=== PATIENT | female | born 1975 | race Caucasian/White ===

== ENCOUNTER 2019-03-31 09:55 | Inpatient (IN) | payer OTHER ==
[2019-03-28 09:34] VITALS: BMI 37.8
[2019-03-31] MEDS ORDERED: PROPOFOL 20 ML ONE (10:31)
[2019-03-31] MEDS ORDERED: ROCURONIUM BROMIDE 50 MG/5 ML VIAL ONE (10:31)
[2019-03-31] MEDS ORDERED: fentaNYL CITRATE 250 MCG/5 ML VIAL ONE (10:31)
[2019-03-31] MEDS ORDERED: DEXAMETHASONE SOD PHOSPHATE 4 MG/1 ML VIAL ONE (10:35)
[2019-03-31] MEDS ORDERED: ONDANSETRON 4 MG/2 ML VIAL ONE (10:35)
[2019-03-31] MEDS ORDERED: ceFAZolin SODIUM 1 GM VIAL ONE (10:35)
[2019-03-31] MEDS ORDERED: KETOROLAC TROMETHAMINE 30 MG/1 ML VIAL ONE (10:35)
[2019-03-31] MEDS ORDERED: LIDOCAINE HCL/PF 2% SDV 5ML VIAL ONE (10:35)
[2019-03-31] MEDS ORDERED: BUPIVACAINE HCL 0.25% 125 MG/50 ML VIAL ONE (10:49)
[2019-03-31] MEDS ORDERED: DEXAMETHASONE SOD PHOSPHATE/PF 10 MG/ML SDV ONE (10:59)
[2019-03-31] MEDS ORDERED: BUPIVACAINE HCL/PF (5 MG/ML) 30 ML VIAL IJ ONE (11:00)
[2019-03-31] MEDS ORDERED: MIDAZOLAM HCL 2 MG/2 ML SINGLE DOSE VIAL ONE (11:00)
--- NOTE | 2019-03-31 11:16 | HP ---
Admitting History and Physical - Admission Chief Complaint: morbid obesity History Source: Patient Limitations to Obtaining History: No Limitations - Past Medical History Cardiovascular: Yes: Hyperlipdemia Pulmonary: Yes: Sleep Apnea ...LMP Comment: unknown ...: No - Advance Directives Advance Directives: Yes: Health Care Proxy - Smoking History Smoking history: Never smoked Have you smoked in the past 12 months: No - Alcohol/Substance Use Hx Alcohol Use: No Home Medications - Allergies Allergies/Adverse Reactions: Allergies Allergy/AdvReac Type Severity Reaction Status Date / Time No Known Allergies Allergy Verified 03/28/19 09:34 - Home Medications Home Medications: Ambulatory Orders Famotidine [Pepcid] 20 mg PO BID #60 tablet 03/31/19 Fenofibrate 0 mg PO DAILY 03/31/19 Oxycodone HCl/Acetaminophen [Percocet 5-325 mg Tablet] 1 - 2 tab PO Q4H #28 tablet MDD 4 03/31/19 Family Disease History - Family Disease History Family History: Unremarkable Review of Systems - Review of Systems Constitutional: denies: Chills, Fever HENT: reports: No Symptoms Neck: reports: No Symptoms Cardiovascular: reports: No Symptoms Respiratory: reports: No Symptoms Gastrointestinal: reports: No Symptoms Neurological: reports: No Symptoms Pain Intensity: 0 Physical Examination Vital Signs: Vital Signs Temperature 99.2 F 03/31/19 10:56 Pulse Rate 87 03/31/19 10:56 Respiratory Rate 18 03/31/19 10:56 Blood Pressure 128/83 03/31/19 10:56 O2 Sat by Pulse Oximetry (%) 96 03/31/19 10:59 Constitutional: Yes: Calm HENT: Yes: WNL Neck: Yes: WNL Cardiovascular: Yes: Regular Rate and Rhythm Respiratory: Yes: Regular Gastrointestinal: Yes: Soft, Abdomen, Obese Neurological: Yes: Alert, Oriented Problem List - Problems (1) Morbid obesity due to excess calories Code(s): E66.01 - MORBID (SEVERE) OBESITY DUE TO EXCESS CALORIES (2) Hyperlipidemia Code(s): E78.5 - HYPERLIPIDEMIA, UNSPECIFIED Qualifiers: Hyperlipidemia type: unspecified Qualified Code(s): E78.5 - Hyperlipidemia , unspecified (3) Sleep apnea Code(s): G47.30 - SLEEP APNEA, UNSPECIFIED Qualifiers: Sleep apnea type: unspecified type Qualified Code(s): G47.30 - Sleep apnea , unspecified Assessment/Plan Laparoscopic vertical sleeve gastrectomy possible open possible liver biopsy possible endoscopy
[2019-03-31] MEDS ORDERED: BUPIVACAINE HCL/PF 0.25% (2.5MG/ML) 10 ML VIAL IJ ONE (13:09)
[2019-03-31] MEDS ORDERED: SODIUM CHLORIDE 1,000 ML IV SCH (13:15)
--- NOTE | 2019-03-31 13:15 | OP ---
Operative Note - Note: Operative Date: 03/31/19 Pre-Operative Diagnosis: morbid obesity. Hyperlipidemia. Sleep apnea Operation: Laparoscopic vertical sleeve gastrectomy. Laparoscopic wedge liver biopsy Surgeon: Pvael Lewis Clinical Psychology Teacher: Wiley Mendoza Anesthesia: General Specimens Removed: Greater curvature of stomach. Liver biopsy Estimated Blood Loss (mls): 30 Drains & Tubes with Location: 36 Fr bougie Operative Report Dictated: Yes
[2019-03-31] MEDS: ONDANSETRON 4 MG/2 ML VIAL IVPUSH SCH ×4 (13:45→21:05)
[2019-03-31] MEDS: METOCLOPRAMIDE HCL INJECTION 10 MG/2 ML VIAL IVPUSH SCH ×3 (13:48→21:05)
[2019-03-31] MEDS: ACETAMINOPHEN 1000 MG/100 ML VIAL (NON FORMULARY) IVPB SCH ×3 (13:51→21:06)
[2019-03-31 14:01] LABS: HEMATOCRIT 33.9 % (32.4-45.2); HEMOGLOBIN 10.7 GM/dl (10.7-15.3); MCH 22.6 pg (25.7-33.7); MCHC 31.6 g/dl (32.0-36.0); MEAN CELL VOLUME 71.5 fl (80-96); MEAN PLT VOLUME 7.3 fl (7.5-11.1); PLATELET COUNT 304 K/MM3 (134-434); RBC 4.74 M/mm3 (3.60-5.2); RDW 13.8 % (11.6-15.6); WHITE BLOOD COUNT 11.1 K/mm3 (4.0-10.8)
[2019-03-31 14:24] LABS: ALBUMIN 3.4 g/dl (3.4-5.0); BILIRUBIN,TOTAL 0.4 mg/dl (0.2-1); CALCIUM 8.1 mg/dl (8.5-10); CREATININE 0.6 mg/dl (0.55-1.3); POTASSIUM 3.6 mmol/L (3.5-5.1); TOT PROT 6.2 g/dl (6.4-8.2)
[2019-03-31] MEDS ORDERED: LACTATED RINGERS SOLUTION 1,000 ML IV SCH (14:45)
[2019-03-31] MEDS ORDERED: FAMOTIDINE 20 MG/50 ML IVPB 20 MG/50 ML MG IVPB ONE (14:59)
[2019-03-31] MEDS ORDERED: FAMOTIDINE 20 MG PREMIXED IVPB IVPB ONE (15:01)
--- NOTE | 2019-03-31 18:43 | SPEC ---
DATE OF OPERATION: SURGEON: Pavel Lewis MD PULPWOOD BUYER: Wiley Mendoza MD PLACE OF SERVICE: [facility] PREOPERATIVE DIAGNOSES: 1. Morbid obesity. 2. Hyperlipidemia. 3. Obstructive sleep apnea. 4. Body mass index of 37.8. POSTOPERATIVE DIAGNOSES: 1. Morbid obesity. 2. Hyperlipidemia. 3. Obstructive sleep apnea. 4. Body mass index of 37.8. 5. Hepatomegaly. PROCEDURES: 1. Diagnostic laparoscopy. 2. Laparoscopic vertical sleeve gastrectomy. 3. Laparoscopic wedge liver biopsy. SPECIMEN: 1. Greater curvature of the stomach. 2. Liver biopsy. ESTIMATED BLOOD LOSS: 30 mL. DRAINS: None. ANESTHESIA: General endotracheal. BOUGIE SIZE: 36-Georgian. REASON FOR PROCEDURE: This is a 43-year-old female who presented for weight loss options. After describing different options, she decided to proceed with laparoscopic, possible open, vertical sleeve gastrectomy, possible liver biopsy, upper endoscopy. RISKS AND BENEFITS: After describing the different options for weight loss management, the patient decided to proceed with a laparoscopic, possible open vertical sleeve gastrectomy. The patient was seen by the respective subspecialties and cleared for surgery. The risks and benefits of the procedure were explained. These included bleeding, infection, hernia, IN, DVT, PE, injury to surrounding structures including the liver, colon, bowel, spleen, esophagus, vessel injury, nerve injury, weight regain, gastric leak, staple line leak, sleeve leak, obstruction, vitamin deficiency, hair loss and as some of the possible complications. The patient understood and signed informed consent. DESCRIPTION OF PROCEDURE: The patient was placed supine on the operating room table. The patient underwent general endotracheal intubation. The arms were brought out at 90 degrees and secured. A footboard was placed and the legs were secured laterally with padding. The abdomen was prepped and draped in the usual sterile fashion. A timeout was performed. An incision was made in the left upper quadrant and a Veress needle inserted. Pneumoperitoneum was established. Subsequently, the Veress needle was removed and a 5-mm trocar was placed under direct visualization with the laparoscope. The laparoscopic camera was then inserted and inspection of the abdominal cavity was performed. An incision was then made in the supraumbilical area and a 15-mm trocar was placed under direct visualization. A 5-mm trocar was then placed in the right upper quadrant and a 5-mm trocar was placed below the left subcostal margin. A stab wound was made in the subxiphoid area and a Liberty clamp inserted and removed to dilate the tract. A Erik liver retractor was inserted. The post was secured at the bedside by the nursing staff. The patient was placed in steep reverse Trendelenburg position and the Erik liver retractor was used to secure the liver towards the anterior abdominal wall. The pylorus was identified and 6 cm proximal to it, the lesser sac was entered using the LigaSure device. All lateral attachments to the greater curvature of the stomach, including the short gastric vessels, were ligated using the LigaSure device toward the gastrosplenic and gastrophrenic ligaments. Once this was done in its entirety, it was confirmed that all tubes within the nasal or oropharyngeal cavity, including a temperature probe were removed by Anesthesia. The bougie was then inserted by Anesthesia. Transection of the stomach was then begun staying adjacent to the bougie but away from the angularis. Transection of the stomach was performed near the portion of the stomach where the lesser sac was entered. Two laparoscopic Endo-LYLE black alma were used at this location. Laparoscopic Endo LYLE purple staple loads were then used for the remainder of the transection until the greater curvature of the stomach was fully transected. This was done staying close to the bougie. Care was taken to stay away from the angle of His cephalad. The staple line was then inspected. Hemostasis was identified. A leak test was then performed. It was clamped distally to the staple line. Irrigation solution was placed in the left upper quadrant and air was insufflated by Anesthesia into the sleeve. No leaks were identified. No obstruction was identified. This was done through the entirety of the staple line. The stomach was suctioned and the bougie removed fully intact under direct visualization. At this point, the irrigation solution was suctioned and again, hemostasis was noted. A wedge liver biopsy was then performed. The left lobe of the liver was identified. A portion of the edge of the left lobe of the liver was grasped. Using electrocautery, a wedge of the left liver was excised. The specimen was removed and sent off the field. Hemostasis of the wedge liver biopsy site was attained and noted using electrocautery. The 15-mm supraumbilical trocar was then removed and the greater curvature specimen removed from the site using a sponge stick richard. A Anson-Leona device was then used to close the fascia with a 0 Vicryl suture at the site. Again, hemostasis was noted. The Erik liver retractor was then removed under direct visualization. Pneumoperitoneum was desufflated. Hemostasis was noted at all incision sites and Marcaine was injected at all incision sites. A 3-0 Vicryl suture was used to close the deep subcutaneous tissue at the 15-mm incision site. All incision sites were closed using 4-0 Biosyn. Sterile dressings were applied. The patient tolerated the procedure well and was transferred to the recovery room in stable condition. Leonela AMBROCIO/[id number]
--- NOTE | 2019-03-31 19:16 | CONSULT ---
Consult Consult Specialty:: IM Reason for Consultation:: medical management - History of Present Illness Chief Complaint: 43 yo lady with morbid obesity came in for Laparoscopic vertical sleeve gastrectomy possible open possible liver biopsy possible endoscopy,. denies chest pain, palpitations, nausea, vomiting, diarrhea - History Source History Provided By: Patient - Past Medical History Cardio/Vascular: Yes: Hyperlipdemia ...LMP Comment: unknown ...: No - Alcohol/Substance Use Hx Alcohol Use: No - Smoking History Smoking history: Never smoked Have you smoked in the past 12 months: No Home Medications - Allergies Allergies/Adverse Reactions: Allergies Allergy/AdvReac Type Severity Reaction Status Date / Time No Known Allergies Allergy Verified 03/28/19 09:34 - Home Medications Home Medications: Ambulatory Orders Famotidine [Pepcid] 20 mg PO BID #60 tablet 03/31/19 Fenofibrate 0 mg PO DAILY 03/31/19 Oxycodone HCl/Acetaminophen [Percocet 5-325 mg Tablet] 1 - 2 tab PO Q4H #28 tablet MDD 4 03/31/19 Review of Systems - Review of Systems Constitutional: reports: No Symptoms Eyes: reports: No Symptoms HENT: reports: No Symptoms Neck: reports: No Symptoms Cardiovascular: reports: No Symptoms Respiratory: reports: No Symptoms Gastrointestinal: reports: No Symptoms Genitourinary: reports: No Symptoms Breasts: reports: No Symptoms Reported Musculoskeletal: reports: No Symptoms Integumentary: reports: No Symptoms Neurological: reports: No Symptoms Endocrine: reports: No Symptoms Hematology/Lymphatic: reports: No Symptoms Psychiatric: reports: No Symptoms Physical Exam Vital Signs: Vital Signs Temperature 98.1 F 03/31/19 15:49 Pulse Rate 96 H 03/31/19 17:13 Respiratory Rate 18 03/31/19 17:13 Blood Pressure 118/66 03/31/19 17:13 O2 Sat by Pulse Oximetry (%) 97 03/31/19 15:51 Constitutional: Yes: Well Nourished, No Distress Eyes: Yes: WNL HENT: Yes: WNL Neck: Yes: WNL Cardiovascular: Yes: WNL Respiratory: Yes: WNL Gastrointestinal: Yes: WNL Renal/: Yes: WNL Musculoskeletal: Yes: WNL Extremities: Yes: WNL Edema: No Integumentary: Yes: WNL Neurological: Yes: WNL ...Motor Strength: WNL Psychiatric: Yes: WNL Labs: CBC, BMP 03/31/19 13:45 03/31/19 13:45 Assessment/Plan 43 yo morbidly obese lady with PMH of HLD, sleep apnea, S/P laparoscopic vertical sleeve gastrectomy, Laparoscopic wedge liver biopsy POD #0. no complications. cont pain management. incentive spirometry. -GI, DVT prophylaxis. -on reglan, zofran for nausea -mild leucocytosis: will monitor for now. hyperglycemia: HbA1C ordered for AM -oral diet as tolerated -OOB as tolerated -will follow up
[2019-03-31] MEDS: ENOXAPARIN NA (PORCINE) 40 MG/0.4 ML DISP.SYRIN SQ SCH (21:06)
[2019-03-31] MEDS: FAMOTIDINE 20 MG/50 ML IVPB 20 MG/50 ML MG IVPB SCH (21:06)
[2019-04-01] MEDS: METOCLOPRAMIDE HCL INJECTION 10 MG/2 ML VIAL IVPUSH SCH ×3 (02:00→13:03)
[2019-04-01] MEDS: ONDANSETRON 4 MG/2 ML VIAL IVPUSH SCH ×3 (02:00→13:03)
[2019-04-01] MEDS: ACETAMINOPHEN 1000 MG/100 ML VIAL (NON FORMULARY) IVPB SCH ×2 (02:00→08:33)
[2019-04-01] MEDS: HYDROmorphone HCL CARPU-JECT 1 MG/1 ML DISP.SYRIN IVPB PRN ×2 (06:37→13:40)
[2019-04-01 07:55] LABS: HEMATOCRIT 31.3 % (32.4-45.2); HEMOGLOBIN 9.4 GM/dl (10.7-15.3); MCH 21.8 pg (25.7-33.7); MEAN CELL VOLUME 72.9 fl (80-96); MEAN PLT VOLUME 7.9 fl (7.5-11.1); PLATELET COUNT 322 K/MM3 (134-434); WHITE BLOOD COUNT 12.6 K/mm3 (4.0-10.8)
--- NOTE | 2019-04-01 09:10 | PN ---
Progress Note (short form) - Note Progress Note: 43F POD1 s/p lap sleeve gastrectomy under GA-ETT doing well. Pt states that pain is well controlled, reports no anesthetic complications. AVSS. Continue current regimen.
[2019-04-01] MEDS: FAMOTIDINE 20 MG/50 ML IVPB 20 MG/50 ML MG IVPB SCH (09:12)
[2019-04-01] MEDS: ENOXAPARIN NA (PORCINE) 40 MG/0.4 ML DISP.SYRIN SQ SCH (09:12)
[2019-04-01 09:21] LABS: ALBUMIN 3.2 g/dl (3.4-5.0); BILIRUBIN,TOTAL 0.5 mg/dL (0.2-1); BLOOD UREA NITROGEN 8.2 mg/dL (7-18); CREATININE 0.6 mg/dL (0.55-1.3); POTASSIUM 3.7 mmol/L (3.5-5.1); TOT PROT 6.2 g/dl (6.4-8.2)
--- NOTE | 2019-04-01 13:47 | PN ---
Progress Note (short form) - Note Progress Note: POD 1 Pain/nausea controlled Vital Signs Period Temp Pulse Resp BP Sys/Webster Pulse Ox Last 24 Hr 98.1 F-98.7 F 78-111 17-20 112-142/53-80 94-98 Abd soft CBC,CMP WBC 12.6 K/mm3 (4.0-10.8) H 04/01/19 07:21 RBC 4.30 M/mm3 (3.60-5.2) 04/01/19 07:21 Hgb 9.4 GM/dl (10.7-15.3) L 04/01/19 07:21 Hct 31.3 % (32.4-45.2) L 04/01/19 07:21 MCV 72.9 fl (80-96) L 04/01/19 07:21 MCH 21.8 pg (25.7-33.7) L 04/01/19 07:21 MCHC 30.0 g/dl (32.0-36.0) L 04/01/19 07:21 RDW 14.0 % (11.6-15.6) 04/01/19 07:21 Plt Count 322 K/MM3 (134-434) 04/01/19 07:21 MPV 7.9 fl (7.5-11.1) 04/01/19 07:21 Sodium 141 mmol/L (136-145) 04/01/19 07:21 Potassium 3.7 mmol/L (3.5-5.1) 04/01/19 07:21 Chloride 110 mmol/L (98-107) H 04/01/19 07:21 Carbon Dioxide 23 mmol/L (21-32) 04/01/19 07:21 Anion Gap 8 MMOL/L (8-16) 04/01/19 07:21 BUN 8.2 mg/dL (7-18) 04/01/19 07:21 Creatinine 0.6 mg/dL (0.55-1.3) 04/01/19 07:21 Est GFR (CKD-EPI)AfAm 128.48 04/01/19 07:21 Est GFR (CKD-EPI)NonAf 110.86 04/01/19 07:21 Random Glucose 122 mg/dL (74-106) H 04/01/19 07:21 Calcium 8.0 mg/dL (8.5-10.1) L 04/01/19 07:21 Total Bilirubin 0.5 mg/dL (0.2-1) 04/01/19 07:21 AST 51 U/L (15-37) H 04/01/19 07:21 ALT 99 U/L (13-61) H 04/01/19 07:21 Alkaline Phosphatase 73 U/L (45-117) 04/01/19 07:21 Total Protein 6.2 g/dl (6.4-8.2) L 04/01/19 07:21 Albumin 3.2 g/dl (3.4-5.0) L 04/01/19 07:21 UGI: no leak/obstruction Clears Discharge home Problem List - Problems (1) Morbid obesity due to excess calories Code(s): E66.01 - MORBID (SEVERE) OBESITY DUE TO EXCESS CALORIES (2) Hyperlipidemia Code(s): E78.5 - HYPERLIPIDEMIA, UNSPECIFIED Qualifiers: Hyperlipidemia type: unspecified Qualified Code(s): E78.5 - Hyperlipidemia , unspecified (3) Sleep apnea Code(s): G47.30 - SLEEP APNEA, UNSPECIFIED Qualifiers: Sleep apnea type: unspecified type Qualified Code(s): G47.30 - Sleep apnea , unspecified
[2019-04-01 14:13] VITALS: BP 133/77; PULSE 93; TEMP 98.6
--- NOTE | 2019-04-02 14:18 | PATH ---
Surgical Pathology Report Patient Name: RADHA RHOADES Med. Rec. #: [id number] /Age/Gender: 1975 (Age: 43) / F Account: [id number] Location: [facility] MED-SURG Taken: 03/31/2019 Received: 03/31/2019 Reported: 04/02/2019 Physicians: Pavel Lewis M.D. Specimen(s) Received A: GREATER CURVATURE STOMACH B: LIVER BIOPSY Clinical History Morbid obesity Final Diagnosis A. STOMACH, GREATER CURVATURE, SLEEVE GASTRECTOMY: PORTION OF GASTRIC FUNDUS WITH MILD CHRONIC GASTRITIS. IMMUNOSTAIN FOR H. PYLORI IS NEGATIVE. B. LIVER, WEDGE BIOPSY: STEATOHEPATITIS, GRADE 2 OF 3, WITH MILD LOBULAR INFLAMMATION AND MILD TO MODERATE PORTAL INFLAMMATION. TRICHROME STAIN HIGHLIGHTS PERISINUSIDAL, PORTAL, AND PERIPORTAL FIBROSIS (STAGE 2 OF 4). IRON STAIN IS NEGATIVE FOR SIDEROSIS. Comment: Recommend correlation with clinical findings and follow up as clinically indicated. Electronically Signed Mateo Gomes M.D. Gross Description A. Received in formalin, labeled "greater curvature of stomach," is a 132 gram, 19.0 x 3.2 x 3.2 cm. portion of stomach with a stapled margin of resection. The serosa is baker-crain with minimal attached fat. The mucosa is baker-pink with normal folds. No mucosal masses are identified. Concession Supervisor sections are submitted in one cassette. B. Received in formalin labeled "liver biopsy," is a 3.2 x 1.5 x 1.0 cm baker portion of soft tissue, consistent with a liver biopsy. Concession Supervisor sections are submitted in one cassette. /04/01/2019 saudi/04/01/2019
== END 2019-04-01 15:00 | disposition home or self-care (01) | DRG 403 ==
LOC: FM/S 09:55
PROVIDERS: ADMIT Surgery; ATTEND Surgery
PROC: 0WJP4ZZ Inspection of Gastrointestinal Tract, Percutaneous Endoscopic Approach (ICD-10-PCS; 2019-03-31)
PROC: 0DB64Z3 Excision of Stomach, Percutaneous Endoscopic Approach, Vertical (ICD-10-PCS; principal; 2019-03-31 12:11)
PROC: 0FB24ZX Excision of Left Lobe Liver, Percutaneous Endoscopic Approach, Diagnostic (ICD-10-PCS; 2019-03-31 12:11)
DX: E66.01 Morbid (severe) obesity due to excess calories (principal); Z68.37 Body mass index [BMI] 37.0-37.9, adult; E78.5 Hyperlipidemia, unspecified; G47.33 Obstructive sleep apnea (adult) (pediatric); R16.0 Hepatomegaly, not elsewhere classified
CPT/HCPCS: 36415; 74241-TC-FY; 80053; 83036; 84703; 85027; 88305-TC; 88307-TC; 88313-TC; 88342-TC; 94760; J0131

== ENCOUNTER 2019-10-19 00:50 | Inpatient (IN) | payer OTHER ==
[2019-10-19] MEDS ORDERED: METHOCARBAMOL 500 MG TABLET PO ONE (01:24)
[2019-10-19] MEDS ORDERED: ACETAMINOPHEN 1000 MG/100 ML VIAL (NON FORMULARY) IVPB ONE (01:24)
--- NOTE | 2019-10-19 01:24 | PDOC ---
History of Present Illness - General Chief Complaint: Chest Pain Stated Complaint: CHEST PAIN Time Seen by Provider: 10/19/19 01:16 - History of Present Illness Initial Comments: 10/19/19 01:31 The patient is a 44 year old female with a history of anemia who presents for evaluation of chest pain. The patient reports a 2 day history of right sided sharp chest pain worse with right arm movement and radiating to her back. She initially presented to her primary care provider 1 day ago and was given a toradol shot for pain. However, she reports worsening pain today prompting her presentation to the ED for further evaluation. She otherwise denies recent long travel, fevers, chills, SOB, nausea, vomiting, abdominal pain, or changes with urination or bowel movements. Past History - Past Medical History Allergies/Adverse Reactions: Allergies Allergy/AdvReac Type Severity Reaction Status Date / Time No Known Allergies Allergy Verified 03/28/19 09:34 Home Medications: Ambulatory Orders Famotidine [Pepcid] 20 mg PO BID #60 tablet 03/31/19 Fenofibrate 0 mg PO DAILY 03/31/19 Oxycodone HCl/Acetaminophen [Percocet 5-325 mg Tablet] 1 - 2 tab PO Q4H #28 tablet MDD 4 03/31/19 Anemia: No Asthma: No Cancer: No Cardiac Disorders: No CVA: No COPD: No CHF: No Dementia: No Diabetes: No GI Disorders: No Disorders: No HTN: No Hypercholesterolemia: No Liver Disease: No Seizures: No Thyroid Disease: No - Surgical History Abdominal Surgery: Yes (TUMMY TUCK) Appendectomy: Yes Cardiac Surgery: No Cholecystectomy: No Lung Surgery: No Neurologic Surgery: No Orthopedic Surgery: No - Psycho Social/Smoking Cessation Hx Smoking History: Never smoked Have you smoked in the past 12 months: No Hx Alcohol Use: No Drug/Substance Use Hx: No Substance Use Type: None Hx Substance Use Treatment: No Review of Systems - Review of Systems Comments:: 10/19/19 01:38 Constitutional: No fevers, chills, fatigue, malaise HEENT: No Rhinorrhea, nasal congestion, visual changes Cardiovascular: Chest pain. No syncope, palpitations, lightheadedness Respiratory: No Cough, SOB, Hemoptysis, Gastrointestinal: No Abdominal pain, Nausea, Vomiting, Constipation, Diarrhea, Melena Genitourinary: No Dysuria, Frequency, Urgency, Hesitancy, Hematuria, Flank pain Musculoskeletal: No Myalgia, arthralgia Skin: No rashes, itching, bruising, pallor Neurologic: No Headache, Dizziness, Numbness, Weakness, or Tingling Psychiatric: No Hallucinations. No SI or HI *Physical Exam - Physical Exam 10/19/19 01:39 General Appearance: Nourished. No Apparent Distress HEENT: No Pharyngeal Erythema, Tonsillar Exudate, Tonsillar Erythema Neck: No Cervical Lymphadenopathy Respiratory/Chest: Lungs Clear, Normal Breath Sounds. Reproducible tenderness to palpation along the right sternal boarder. No Crackles, Rales, Rhonchi, Wheezing Cardiovascular: Regular Rhythm, Regular Rate. No Murmur, Gallops, Rubs Gastrointestinal/Abdominal: Normal Bowel Sounds, Soft. No Guarding, Rebound, Tenderness Musculoskeletal: No CVA Tenderness Extremity: Normal Capillary Refill Integumentary: Normal Color, Dry, Warm Neurologic: Fully Oriented, Alert, Normal Mood/Affect, Normal Response, Heart Score/ECG Review #1 ECG reviewed & interpreted by me at: 01:39 10/19/19 01:39 HR 65 CA 146 QRS 82 QTc 436 Normal sinus Rhythm No acute ST Changes ED Treatment Course - LABORATORY CBC & Chemistry Diagram: 10/19/19 01:45 10/19/19 01:45 Medical Decision Making - Medical Decision Making 10/19/19 01:40 The patient is a 44 year old female with a history of anemia who presents for evaluation of chest pain. Given the patient's history and physical exam, it is likely the patient's symptoms are musculoskeletal in nature. However, we will obtain a cbc, cmp, troponin, ekg, chest plain film to evaluate further. We will treat with tylenol and robaxin and continue to monitor and reassess while here in the ED. 10/19/19 05:28 CBC demonstrates a hgb of 7.9. CMP and troponin are unremarkable. Chest plain film did not demonstrate an acute process. The patient continues to complain of persistent chest pain. Given the patient's persistent pain and anemia with acute drop in her hgb, she will require admission for further monitoring and management. Discharge - Discharge Information Problems reviewed: Yes Clinical Impression/Diagnosis: Chest pain, Anemia Condition: Stable - Admission Yes - Follow up/Referral - Patient Discharge Instructions - Post Discharge Activity
--- NOTE | 2019-10-19 01:27 | PDOC ---
Attending Attestation - Resident Resident Name: Harish Rodriguez - ED Attending Attestation I have performed the following: I have examined & evaluated the patient, The case was reviewed & discussed with the resident, I agree w/resident's findings & plan - HPI HPI: 10/19/19 03:55 Pt comes with chest pain; symptomatic anemia. She is being worked up by her PMD for anemia; She has known anemia that has been dropping 11>10>9 and now 7 - Physicial Exam PE: 10/19/19 05:32 Afebrile VSS Pt has normal HEENT 10/19/19 06:25 Agree princess resident exam - Medical Decision Making 10/19/19 01:47 CXR is normal 10/19/19 06:25 labs are normal, except for anemia. Pt will be admitted for repeat CBC and monitoring of her CP and SPB and anemia hositalists are aware
[2019-10-19] MEDS ORDERED: ACETAMINOPHEN INJECTION 100 ML IVPB ONE (02:00)
[2019-10-19 02:02] LABS: BASO % 0.1 % (0-2.0); EOS % 6.1 % (0-4.5); HEMATOCRIT 26.5 % (32.4-45.2); HEMOGLOBIN 7.9 GM/dL (10.7-15.3); LYMPH % 29.5 % (8-40); MCHC 29.8 g/dl (32.0-36.0); MEAN CELL VOLUME 63.7 fl (80-96); MEAN PLT VOLUME 7.3 fl (7.5-11.1); MONO % 6.7 % (3.8-10.2); NEUT % 57.6 % (42.8-82.8); PLATELET COUNT 335 K/MM3 (134-434); RBC 4.16 M/mm3 (3.60-5.2); RDW 16.3 % (11.6-15.6)
[2019-10-19] MEDS ORDERED: METHOCARBAMOL 500 MG TABLET ONE (02:03)
[2019-10-19 02:32] LABS: ALK PHOS 56 U/L (45-117); ANION GAP 6 MMOL/L (8-16); BILIRUBIN,TOTAL 0.2 mg/dL (0.2-1); BLOOD UREA NITROGEN 13.6 mg/dL (7-18); CALCIUM 8.1 mg/dL (8.5-10.1); CHLORIDE 109 mmol/L (98-107); CO2 25 mmol/L (21-32); CREATININE 0.5 mg/dL (0.55-1.3); GLUCOSE,RANDOM 90 mg/dL (74-106); POTASSIUM 4.1 mmol/L (3.5-5.1); SGOT/AST 11 U/L (15-37); SGPT/ALT 14 U/L (13-61); SODIUM 140 mmol/L (136-145); TOT PROT 5.9 g/dl (6.4-8.2)
[2019-10-19 03:38] LABS: INR 1.18 (0.83-1.09); PROTHROMBIN TIME (PATIENT) 13.9 SEC (9.7-13.0)
--- NOTE | 2019-10-19 04:43 | HP ---
Admitting History and Physical - Primary Care Physician PCP: Dr. Mcgraw - Admission Chief Complaint: right side chest pain History of Present Illness: 44 year old female with a history of anemia (03/31/19 Laparoscopic vertical sleeve gastrectomy) arrived to Emergency department for complain of right side chest pain. Patient reports pain started 2 days ago right sided sharp chest pain worse with right arm movement and radiating to her back. Patient went to PCP for symptoms for which she was given toradol shot without relief. Arrived to ER for worsening pain without SOB. Patient denies recent travel, fevers, chills, nausea, vomiting, abdominal pain, or changes with urination or bowel movements. History Source: Patient Limitations to Obtaining History: No Limitations - Past Medical History Cardiovascular: Yes: Hyperlipdemia Pulmonary: Yes: Sleep Apnea Gastrointestinal: Yes: GERD - Smoking History Smoking history: Never smoked Have you smoked in the past 12 months: No - Alcohol/Substance Use Hx Alcohol Use: No History of Substance Use: reports: None - Social History Usual Living Arrangement: Yes: Alone ADL: Independent History of Recent Travel: No Home Medications - Allergies Allergies/Adverse Reactions: Allergies Allergy/AdvReac Type Severity Reaction Status Date / Time No Known Allergies Allergy Verified 03/28/19 09:34 - Home Medications Home Medications: Ambulatory Orders Famotidine [Pepcid] 20 mg PO BID #60 tablet 03/31/19 Fenofibrate 0 mg PO DAILY 03/31/19 Oxycodone HCl/Acetaminophen [Percocet 5-325 mg Tablet] 1 - 2 tab PO Q4H #28 tablet MDD 4 03/31/19 Family Medical History Family History: Denies Review of Systems - Review of Systems Constitutional: reports: No Symptoms Eyes: reports: No Symptoms HENT: reports: No Symptoms Neck: reports: No Symptoms Cardiovascular: reports: Chest Pain (right side chest pain) Respiratory: reports: No Symptoms Gastrointestinal: reports: No Symptoms Genitourinary: reports: No Symptoms Musculoskeletal: reports: No Symptoms Integumentary: reports: No Symptoms Neurological: reports: No Symptoms Endocrine: reports: No Symptoms Hematology/Lymphatic: reports: No Symptoms Psychiatric: reports: No Symptoms Physical Examination Vital Signs: Vital Signs Temperature 98 F 10/19/19 01:55 Pulse Rate 64 10/19/19 01:55 Respiratory Rate 17 10/19/19 01:55 Blood Pressure 96/64 10/19/19 01:55 O2 Sat by Pulse Oximetry (%) 98 10/19/19 01:55 Constitutional: Yes: No Distress, Calm Eyes: Yes: Conjunctiva Clear, EOM Intact HENT: Yes: Atraumatic, Normocephalic Neck: Yes: Supple, Trachea Midline Cardiovascular: Yes: Regular Rate and Rhythm Respiratory: Yes: Regular, CTA Bilaterally Gastrointestinal: Yes: Normal Bowel Sounds, Soft Renal/: Yes: WNL Musculoskeletal: Yes: Muscle Pain (right side chest pain radiating to right upper back) Extremities: Yes: WNL Edema: No Peripheral Pulses WNL: Yes Integumentary: Yes: WNL Neurological: Yes: Alert, Oriented Psychiatric: Yes: Alert, Oriented Labs: CBC, BMP 10/19/19 01:45 10/19/19 01:45 Imaging - Results Chest X-ray: Report Reviewed (no acute infiltrate) Problem List - Problems (1) Chest pain Code(s): R07.9 - CHEST PAIN, UNSPECIFIED (2) Symptomatic anemia Code(s): D64.9 - ANEMIA, UNSPECIFIED (3) GERD (gastroesophageal reflux disease) Code(s): K21.9 - GASTRO-ESOPHAGEAL REFLUX DISEASE WITHOUT ESOPHAGITIS (4) Hyperlipidemia Code(s): E78.5 - HYPERLIPIDEMIA, UNSPECIFIED Qualifiers: Hyperlipidemia type: unspecified Qualified Code(s): E78.5 - Hyperlipidemia , unspecified Assessment/Plan 44 year old female with a history of anemia, GERD (s/p 03/31/19 Laparoscopic vertical sleeve gastrectomy) arrived to Emergency department for complain of worsening right side chest pain without SOB. # Chest pain ? musculoskeletal in nature EKG: NSR, rate 65, no s/t changes Trop: negative Given Tylenol and robaxin for pain without relief - will give morphine 0.5mg IV PUSH x1 (pain scale 9/10) - start flexeril 5mg daily - pain management tylenol 650mg PRN pain scale (1-5), oxycodone 5mg PRN (5-10) - follow up PT evaluation - can consider cardio follow up if EKG changes or symptoms get worse #Symptomatic Anemia ? microcytic anemia h/o (s/p 03/31/19 Laparoscopic vertical sleeve gastrectomy) (per patient baseline is 9 denies any dark stool, bleeding, denies taking iron supplement) - h/h has been trending downward 11.6, 10.7, 9.4, 7.9 now - albumin and protein is low - f/u iron studies, b12, and folic acid - occult x2 - start iron, MVI supplement - follow up dietary consult - follow up hematology # GERD - continue with pepcid 20 mg BID #HLD - continue with Fenofibrate - follow up lipids FEN: monitor lytes, Regular diet VTE: TEDs, monitor H/H trend and if occult negative start heparin SQ Dispo: med-surg in patient Visit type - Emergency Visit Emergency Visit: Yes Care time: The patient presented to the Emergency Department on the above date and was hospitalized for further evaluation of their emergent condition. - New Patient This patient is new to me today: Yes Date on this admission: 10/19/19 - Critical Care Critical Care patient: No
[2019-10-19] MEDS ORDERED: MORPHINE SULFATE 2 MG/ML VIAL IVPUSH ONE (05:05)
[2019-10-19] MEDS ORDERED: ACETAMINOPHEN 325 MG TABLET (FP) PO PRN (05:17)
[2019-10-19 05:34] LABS: MACROCYTOSIS 0; SICKELED CELLS 0
[2019-10-19 05:35] LABS: ANISOCYTOSIS 1+
[2019-10-19 07:14] LABS: IRON SERUM 8 ug/dL (50-175); TOTAL IRON BINDING CAPACITY 325 ug/dL (250-450)
[2019-10-19] MEDS ORDERED: MORPHINE SULFATE 2 MG/ML VIAL ONE (07:28)
[2019-10-19 08:55] VITALS: BMI 26.5
[2019-10-19] MEDS: MULTIVITAMINS THER W-MINERALS COMBO TABLET (FP) PO SCH (10:43)
[2019-10-19] MEDS: FERROUS SO4 325 MG TABLET (FP) PO SCH ×2 (10:43→21:26)
[2019-10-19] MEDS: CYCLOBENZAPRINE HCL 5 MG TABLET PO SCH (10:44)
[2019-10-19] MEDS: FAMOTIDINE 20 MG TABLET PO SCH ×2 (10:44→21:27)
--- NOTE | 2019-10-19 10:45 | PN ---
Progress Note, Physician Chief Complaint: Chest Pain Anemia History of Present Illness: Previous notes and events reviewed awake and alert NAD complain of R upper chest pain, reproducible on palpation denies SOB - Current Medication List Current Medications: Active Medications Acetaminophen (Tylenol -) 650 mg PO Q4H PRN PRN Reason: PAIN LEVEL 1-5 Cyclobenzaprine HCl (Cyclobenzaprine Hcl) 5 mg PO DAILY [facility] Famotidine (Pepcid -) 20 mg PO BID [facility] Fenofibric Acid (Trilipix -) 45 mg PO DAILY [facility] Ferrous Sulfate (Feosol -) 325 mg PO BID [facility] Multivitamins/Minerals (Theragran-M) 1 each PO DAILY [facility] Oxycodone HCl (Roxicodone -) 5 mg PO Q6H PRN PRN Reason: PAIN LEVEL 6-10 - Objective Vital Signs: Vital Signs Temperature 97.7 F 10/19/19 08:39 Pulse Rate 64 10/19/19 08:39 Respiratory Rate 19 10/19/19 08:39 Blood Pressure 101/54 L 10/19/19 08:39 O2 Sat by Pulse Oximetry (%) 98 10/19/19 08:39 Constitutional: Yes: No Distress, Calm Eyes: Yes: Conjunctiva Clear HENT: Yes: Atraumatic Cardiovascular: Yes: Regular Rate and Rhythm Respiratory: Yes: Regular, CTA Bilaterally Gastrointestinal: Yes: Normal Bowel Sounds, Soft Musculoskeletal: Yes: WNL, Muscle Pain (r chest) Extremities: Yes: WNL Edema: No Neurological: Yes: Alert, Oriented Psychiatric: Yes: Alert, Oriented Labs: CBC, BMP 10/19/19 01:45 10/19/19 01:45 INR, PTT INR 1.18 (0.83-1.09) H 10/19/19 02:55 Problem List - Problems (1) Chest pain Assessment/Plan: -Atypical -reproducible on palpation -pain control Code(s): R07.9 - CHEST PAIN, UNSPECIFIED (2) GERD (gastroesophageal reflux disease) Assessment/Plan: -Famotidine Code(s): K21.9 - GASTRO-ESOPHAGEAL REFLUX DISEASE WITHOUT ESOPHAGITIS (3) Symptomatic anemia Assessment/Plan: -Hg 7.9 -Anemia profile shows low Iron 8, TIBC 325, Iron Sat 2 -Ferrous Sulfate BID -Injectafer 750mg IVPB x 1 dose -monitor Hg daily -transfuse for Hg <8.0 -stool OB Code(s): D64.9 - ANEMIA, UNSPECIFIED (4) Hyperlipidemia Assessment/Plan: -lipid panel Code(s): E78.5 - HYPERLIPIDEMIA, UNSPECIFIED Qualifiers: Hyperlipidemia type: unspecified Qualified Code(s): E78.5 - Hyperlipidemia , unspecified Assessment/Plan see problem list dvt ppx
[2019-10-19] MEDS: oxyCODONE HCL 5 MG TABLET PO PRN ×2 (10:48→18:32)
[2019-10-19] MEDS ORDERED: PT OWN MED DRAWER 7, Y5N ONE ×3 (10:59→16:30)
[2019-10-19] MEDS ORDERED: FERRIC CARBOXYMALTOSE 750 MG in SODIUM CHLORIDE 250 ML IVPB ONE (13:00)
[2019-10-19] MEDS: ONDANSETRON 4 MG/2 ML VIAL IVPB PRN (13:48)
[2019-10-19] MEDS: FENOFIBRIC ACID 45 MG CAP PO SCH (13:56)
--- NOTE | 2019-10-19 15:27 | EKG ---
Test Reason : Blood Pressure : / mmHG Vent. Rate : 065 BPM Atrial Rate : 065 BPM P-R Int : 146 ms QRS Dur : 082 ms QT Int : 420 ms P-R-T Axes : 059 056 048 degrees QTc Int : 436 ms NORMAL SINUS RHYTHM LOW VOLTAGE QRS BORDERLINE ECG NO PREVIOUS ECGS AVAILABLE Confirmed by MD LONG, SOPHIE ([id number]) on 10/19/2019 3:26:44 PM Referred By: Confirmed By:SOPHIE ALVES MD
[2019-10-20] MEDS: oxyCODONE HCL 5 MG TABLET PO PRN ×2 (02:55→09:20)
--- NOTE | 2019-10-20 08:26 | PN ---
Progress Note, Physician - Current Medication List Current Medications: Active Medications Acetaminophen (Tylenol -) 650 mg PO Q4H PRN PRN Reason: PAIN LEVEL 1-5 Cyclobenzaprine HCl (Cyclobenzaprine Hcl) 5 mg PO DAILY [facility] Last Admin: 10/19/19 10:44 Dose: 5 mg Famotidine (Pepcid -) 20 mg PO BID [facility] Last Admin: 10/19/19 21:27 Dose: 20 mg Fenofibric Acid (Trilipix -) 45 mg PO DAILY [facility] Last Admin: 10/19/19 13:56 Dose: 45 mg Ferrous Sulfate (Feosol -) 325 mg PO BID [facility] Last Admin: 10/19/19 21:26 Dose: 325 mg Multivitamins/Minerals (Theragran-M) 1 each PO DAILY [facility] Last Admin: 10/19/19 10:43 Dose: 1 each Ondansetron HCl (Zofran Injection) 4 mg IVPB Q6H PRN PRN Reason: NAUSEA Last Admin: 10/19/19 13:48 Dose: 4 mg Oxycodone HCl (Roxicodone -) 5 mg PO Q6H PRN PRN Reason: PAIN LEVEL 6-10 Last Admin: 10/20/19 02:55 Dose: 5 mg - Objective Vital Signs: Vital Signs Temperature 98.2 F 10/19/19 21:32 Pulse Rate 67 10/19/19 21:32 Respiratory Rate 20 10/19/19 21:32 Blood Pressure 99/52 L 10/19/19 21:32 O2 Sat by Pulse Oximetry (%) 98 10/19/19 08:39 Cardiovascular: Yes: Regular Rate and Rhythm Respiratory: Yes: Regular, CTA Bilaterally, Other (pain reproducible on right chest) Gastrointestinal: Yes: Normal Bowel Sounds, Soft Labs: CBC, BMP 10/19/19 01:45 10/19/19 01:45 INR, PTT INR 1.18 (0.83-1.09) H 10/19/19 02:55 Problem List - Problems (1) Chest pain Assessment/Plan: -Atypical -reproducible on palpation -pain control -Cta of chest Code(s): R07.9 - CHEST PAIN, UNSPECIFIED (2) Symptomatic anemia Code(s): D64.9 - ANEMIA, UNSPECIFIED (3) S/P laparoscopic sleeve gastrectomy Assessment/Plan: -Maybe due to menses--heavy this month and gastric sleeve -Hg 7.9 -Anemia profile shows low Iron 8, TIBC 325, Iron Sat 2 -Ferrous Sulfate BID -Injectafer 750mg IVPB x 1 dose -monitor Hg daily -transfuse for Hg <8.0 -stool OB -Hem consult Code(s): Z98.84 - BARIATRIC SURGERY STATUS (4) Hyperlipidemia Code(s): E78.5 - HYPERLIPIDEMIA, UNSPECIFIED Qualifiers: Hyperlipidemia type: unspecified Qualified Code(s): E78.5 - Hyperlipidemia , unspecified
[2019-10-20 08:44] LABS: HEMOGLOBIN 8.2 GM/dL (10.7-15.3); MCHC 30.4 g/dl (32.0-36.0); MEAN CELL VOLUME 63.5 fl (80-96); MEAN PLT VOLUME 7.5 fl (7.5-11.1); PLATELET COUNT 332 K/MM3 (134-434); RBC 4.25 M/mm3 (3.60-5.2); RDW 16.4 % (11.6-15.6); WHITE BLOOD COUNT 4.3 K/mm3 (4.0-10.0)
[2019-10-20 09:12] LABS: MCH 19.3 pg (25.7-33.7)
[2019-10-20] MEDS: FENOFIBRIC ACID 45 MG CAP PO SCH (09:18)
[2019-10-20] MEDS: CYCLOBENZAPRINE HCL 5 MG TABLET PO SCH (09:18)
[2019-10-20] MEDS: FERROUS SO4 325 MG TABLET (FP) PO SCH ×2 (09:19→21:32)
[2019-10-20] MEDS: MULTIVITAMINS THER W-MINERALS COMBO TABLET (FP) PO SCH (09:19)
[2019-10-20] MEDS: FAMOTIDINE 20 MG TABLET PO SCH ×2 (09:19→21:34)
[2019-10-20 09:28] LABS: ALBUMIN 2.9 g/dl (3.4-5.0); BILIRUBIN,TOTAL 0.2 mg/dL (0.2-1); BLOOD UREA NITROGEN 9.6 mg/dL (7-18); CALCIUM 8.5 mg/dL (8.5-10.1); CREATININE 0.5 mg/dL (0.55-1.3); POTASSIUM 4.6 mmol/L (3.5-5.1)
[2019-10-20] MEDS: ONDANSETRON 4 MG/2 ML VIAL IVPB PRN (10:33)
--- NOTE | 2019-10-20 10:59 | EKG ---
Test Reason : Blood Pressure : / mmHG Vent. Rate : 058 BPM Atrial Rate : 058 BPM P-R Int : 124 ms QRS Dur : 088 ms QT Int : 416 ms P-R-T Axes : 045 048 041 degrees QTc Int : 408 ms SINUS BRADYCARDIA OTHERWISE NORMAL ECG WHEN COMPARED WITH ECG OF 19-OCT-2019 01:10, NO SIGNIFICANT CHANGE WAS FOUND Confirmed by TOM MICHAUD MD ([id number]) on 10/20/2019 10:59:46 AM Referred By: AYESHA BECERRIL DR Confirmed By:TOM MICHAUD MD
[2019-10-20 11:19] LABS: BASO % 0.2 % (0-2.0); EOS % 5.1 % (0-4.5); HEMATOCRIT 27.3 % (32.4-45.2); HEMOGLOBIN 8.3 GM/dL (10.7-15.3); LYMPH % 32.9 % (8-40); MCHC 30.3 g/dl (32.0-36.0); MEAN CELL VOLUME 63.6 fl (80-96); MEAN PLT VOLUME 7.5 fl (7.5-11.1); NEUT % 54.8 % (42.8-82.8); PLATELET COUNT 337 K/MM3 (134-434); RDW 16.6 % (11.6-15.6); WHITE BLOOD COUNT 4.8 K/mm3 (4.0-10.0)
[2019-10-20 11:28] LABS: MCH 19.2 pg (25.7-33.7)
[2019-10-20 11:41] LABS: ALK PHOS 56 U/L (45-117); ANION GAP 6 MMOL/L (8-16); BILIRUBIN,TOTAL 0.2 mg/dL (0.2-1); BLOOD UREA NITROGEN 9.1 mg/dL (7-18); CALCIUM 8.5 mg/dL (8.5-10.1); CHLORIDE 107 mmol/L (98-107); CO2 27 mmol/L (21-32); CREATININE 0.5 mg/dL (0.55-1.3); GLUCOSE,RANDOM 88 mg/dL (74-106); POTASSIUM 4.2 mmol/L (3.5-5.1); SGOT/AST 7 U/L (15-37); SGPT/ALT 11 U/L (13-61); SODIUM 140 mmol/L (136-145); TOT PROT 6.1 g/dl (6.4-8.2)
--- NOTE | 2019-10-20 14:43 | CON.CARD ---
Consult Consult Specialty:: Cardiology Referred by:: Mary Ellen Reason for Consultation:: Chest pain - History of Present Illness History of Present Illness: 44 F s/p bariatric surgery 03/31/19, worsening anemia, now admitted with right sided reproducible cp. Currently symptom free in NAD. - Past Medical History Cardio/Vascular: Yes: Hyperlipdemia Pulmonary: Yes: Sleep Apnea Gastrointestinal: Yes: GERD ...: No - Alcohol/Substance Use Hx Alcohol Use: No History of Substance Use: reports: None - Smoking History Smoking history: Never smoked Have you smoked in the past 12 months: No - Social History ADL: Independent History of Recent Travel: No Home Medications - Allergies Allergies/Adverse Reactions: Allergies Allergy/AdvReac Type Severity Reaction Status Date / Time No Known Allergies Allergy Verified 03/28/19 09:34 - Home Medications Home Medications: Ambulatory Orders Famotidine [Pepcid] 20 mg PO BID #60 tablet 03/31/19 Fenofibrate 0 mg PO DAILY 03/31/19 Oxycodone HCl/Acetaminophen [Percocet 5-325 mg Tablet] 1 - 2 tab PO Q4H #28 tablet MDD 4 03/31/19 Review of Systems - Review of Systems Constitutional: reports: No Symptoms Eyes: reports: No Symptoms HENT: reports: No Symptoms Neck: reports: No Symptoms Cardiovascular: reports: No Symptoms Respiratory: reports: No Symptoms Gastrointestinal: reports: No Symptoms Genitourinary: reports: No Symptoms Breasts: reports: No Symptoms Reported Musculoskeletal: reports: Muscle Pain Integumentary: reports: No Symptoms Neurological: reports: No Symptoms Endocrine: reports: No Symptoms Hematology/Lymphatic: reports: Other (Anemia) Psychiatric: reports: No Symptoms Vital Signs: Vital Signs Temperature 98 F 10/20/19 10:00 Pulse Rate 58 L 10/20/19 10:00 Respiratory Rate 20 10/20/19 10:00 Blood Pressure 104/60 10/20/19 10:00 O2 Sat by Pulse Oximetry (%) 98 10/20/19 09:00 Constitutional: Yes: Well Nourished, No Distress, Calm Eyes: Yes: WNL, Conjunctiva Clear, EOM Intact HENT: Yes: WNL, Atraumatic, Normocephalic Neck: Yes: WNL, Supple, Trachea Midline Respiratory: Yes: WNL, Regular, CTA Bilaterally Gastrointestinal: Yes: WNL, Normal Bowel Sounds, Soft Renal/: Yes: WNL Cardiovascular: Yes: WNL, Regular Rate and Rhythm JVD: No Carotid Bruit: No PMI: Non-Displaced Heart Sounds: Yes: S1, S2 Musculoskeletal: Yes: WNL Extremities: Yes: WNL Edema: No Peripheral Pulses WNL: Yes Peripheral Pulses: 2+ Left Carotid, 2+ Right Carotid, 2+ Left Femoral, 2+ Right Femoral, 2+ Left Popliteal, 2+ Right Popliteal, 2+ Left Doralis Pedis, 2+ Right Dorsalis Pedis Integumentary: Yes: WNL Neurological: Yes: WNL, Alert, Oriented ...Motor Strength: WNL Psychiatric: Yes: WNL, Alert, Oriented - Other Data Labs, Other Data: CBC, BMP 10/20/19 10:30 10/20/19 10:30 INR, PTT INR 1.18 (0.83-1.09) H 10/19/19 02:55 Troponin, BNP 10/20/19 10:30 Troponin I < 0.02 Troponin, BNP 10/20/19 10:30 Troponin I < 0.02 Assessment/Plan 44 F s/p bariatric surgery 03/31/19, worsening anemia, now admitted with right sided reproducible cp. Currently symptom free in NAD. Non cardiac cp. No ecg changes in NSR. No needs for further cardiac w/u nor monitoring. Pls call us PRN. Ok for anemia w/u if deemed necessary.
[2019-10-21 06:06] VITALS: PULSE 60
--- NOTE | 2019-10-21 09:14 | PN ---
Progress Note, Physician Chief Complaint: right sided chest pain History of Present Illness: NAD Denies any pain today Seen by Cardiology- pain not of cardiac origin Given Injectafer IV for WESTON - Current Medication List Current Medications: Active Medications Acetaminophen (Tylenol -) 650 mg PO Q4H PRN PRN Reason: PAIN LEVEL 1-5 Last Admin: 10/20/19 09:19 Dose: 650 mg Cyclobenzaprine HCl (Cyclobenzaprine Hcl) 5 mg PO DAILY [facility] Last Admin: 10/20/19 09:18 Dose: 5 mg Famotidine (Pepcid -) 20 mg PO BID [facility] Last Admin: 10/20/19 21:34 Dose: 20 mg Fenofibric Acid (Trilipix -) 45 mg PO DAILY [facility] Last Admin: 10/20/19 09:18 Dose: 45 mg Ferrous Sulfate (Feosol -) 325 mg PO BID [facility] Last Admin: 10/20/19 21:32 Dose: 325 mg Multivitamins/Minerals (Theragran-M) 1 each PO DAILY [facility] Last Admin: 10/20/19 09:19 Dose: 1 each Naproxen (Naprosyn -) 500 mg PO BID [facility] Ondansetron HCl (Zofran Injection) 4 mg IVPB Q6H PRN PRN Reason: NAUSEA Last Admin: 10/20/19 10:33 Dose: 4 mg - Objective Vital Signs: Vital Signs Temperature 97.7 F 10/21/19 06:00 Pulse Rate 60 10/21/19 06:00 Respiratory Rate 20 10/21/19 06:00 Blood Pressure 98/53 L 10/21/19 06:00 O2 Sat by Pulse Oximetry (%) 98 10/20/19 21:00 Constitutional: Yes: Well Nourished, No Distress, Calm Cardiovascular: Yes: Regular Rate and Rhythm Respiratory: Yes: Regular, CTA Bilaterally Gastrointestinal: Yes: Normal Bowel Sounds, Soft Genitourinary: Yes: WNL Musculoskeletal: Yes: WNL Extremities: Yes: WNL Edema: No Peripheral Pulses WNL: Yes Neurological: Yes: Alert, Oriented Psychiatric: Yes: Alert, Oriented Labs: CBC, BMP 10/20/19 10:30 10/20/19 10:30 INR, PTT INR 1.18 (0.83-1.09) H 10/19/19 02:55 Problem List - Problems (1) WESTON (iron deficiency anemia) Assessment/Plan: -Injectafer once -F/U with Hematology o/p at [facility] -Start ferrous sulfate 1 tab po daily Problems reviewed: Yes Code(s): D50.9 - IRON DEFICIENCY ANEMIA, UNSPECIFIED (2) Chest pain Assessment/Plan: -Atypical -Seen by cardiology -Pain not of cardiac origin Problems reviewed: Yes Code(s): R07.9 - CHEST PAIN, UNSPECIFIED Assessment/Plan See problem list
[2019-10-21] MEDS: FAMOTIDINE 20 MG TABLET PO SCH (09:29)
[2019-10-21] MEDS: FERROUS SO4 325 MG TABLET (FP) PO SCH (09:29)
[2019-10-21] MEDS: MULTIVITAMINS THER W-MINERALS COMBO TABLET (FP) PO SCH (09:29)
[2019-10-21] MEDS: CYCLOBENZAPRINE HCL 5 MG TABLET PO SCH (09:29)
[2019-10-21] MEDS: FENOFIBRIC ACID 45 MG CAP PO SCH (09:31)
[2019-10-21] MEDS ORDERED: NAPROXEN 500 MG TABLET (FP) PO SCH (10:00)
[2019-10-21 10:28] VITALS: BP 98/60; TEMP 98
== END 2019-10-21 14:15 | disposition home or self-care (01) | DRG 663 ==
LOC: JER 00:50 → JERBED 04:43 → J6S 08:12
PROVIDERS: ADMIT Internal Medicine; ATTEND Family Medicine
DX: D50.9 Iron deficiency anemia, unspecified (principal); R07.9 Chest pain, unspecified; E78.5 Hyperlipidemia, unspecified; K21.9 Gastro-esophageal reflux disease without esophagitis
CPT/HCPCS: 36415; 71045-TC-FY; 71275-TC; 80048; 80053; 82550; 82607; 83540; 83550; 84484; 85025; 85027; 85610; 85730; 86850; 86900; 86901; 93005; 93010; 97116-GP; 97161-GP; 99284-25; J0131; J1439; Q9967